=== PATIENT | female | born 1970 | race Caucasian/White ===

== ENCOUNTER 2018-12-30 16:31 | Emergency (ER) | payer OTHER ==
[~2018-12-30] VITALS: Ht 157.5 cm; Wt 66.0 kg
[~2018-12-30 16:31] MED LIST: AMOXICILLIN500 M2 PO; FOLIC ACID1 MG PO; HYDROXYZ HCL25 MG PO; KLOR-CON M2020 MEQ PO; LACTULOSE PO; MAGNESIUM-OX400 MG PO; ONDANSETRON4 MG PO; TORADOL PO; TYLENOL # 31 TA1 PO; VITAMIN D50000 UN1 PO; WELLBUTRIN SR150 MG PO
[2018-12-30] MEDS ORDERED: SPIRONOLACTONE25 MG PO (16:59)
[2018-12-30 17:31] LABS: IMMATURE GRANULOCYTES 0.4 % (0.0-5.0); MEAN CORPUSCULAR HGB 35.2 pG CALC (26.0-32.0); MEAN CORPUSCULAR HGB CONC 33.8 g/L CALC (32.0-36.0); NEUT# 8.15 thou/uL (2.00-7.15); RED BLOOD COUNT 4.55 mill/uL (4.20-5.60); RED CELL DISTRI WIDTH 12.5 % (11.5-15.5)
[2018-12-30 17:32] LABS: HEMATOCRIT 47.4 % (37.0-47.0); MEAN CELL VOLUME 104.2 fL CALC (80.0-100.0)
[2018-12-30 17:47] LABS: ANION GAP 11 (6-22 (CALC)); BUN 4 mg/dL (7-17); BUN/CREATININE RATIO 6 (12-20 (CALC)); CARBON DIOXIDE 28 mmol/l (22-30); CHLORIDE 102 mmol/l (95-108); CREATININE 0.7 mg/dL (0.5-1.0); GFR > 60 ML/MIN (>=60 (CALC)); GFR FOR AFR.AMER. > 60 ML/MIN (>=60 (CALC)); LIPASE 70 u/l (23-300); POTASSIUM 3.8 mmol/l (3.5-5.1); SGOT/AST 35 u/l (14-36); SODIUM 137 mmol/l (137-146); TOTAL PROTEIN 7.8 g/dL (6.3-8.2)
[2018-12-30 17:50] LABS: ALBUMIN 4.1 g/dL (3.2-5.0); ALKALINE PHOSPHATASE 79 u/l (38-126); BILIRUBIN, TOTAL 0.9 mg/dL (0.0-1.4)
[2018-12-30 18:12] LABS: URINE BILIRUBIN - DIPSTICK NEGATIVE (NEGATIVE); URINE BLOOD DIPSTICK NEGATIVE (NEGATIVE); URINE COLOR YELLOW; URINE GLUCOSE - DIPSTICK NEGATIVE (NEGATIVE); URINE KETONE TRACE mg/dL (NEGATIVE); URINE LEUK ESTERASE NEGATIVE (NEGATIVE); URINE NITRITE - DIPSTICK NEGATIVE (Negative); URINE PH 7.5 (4.5-8.0); URINE PROTEIN - DIPSTICK TRACE mg/dL (NEG-TRACE)
[2018-12-30 19:24] VITALS: BP 93/50
== END 2018-12-30 19:33 | disposition home or self-care (01) ==
LOC: ED 16:31
PROVIDERS: Family Medicine
DX: R10.32 Left lower quadrant pain (principal); K74.60 Unspecified cirrhosis of liver
CPT/HCPCS: Q9967